=== PATIENT | male | born 1950 | race Caucasian/White ===

== ENCOUNTER 2017-10-07 10:12 | Day surgery (SDC) | payer MEDICARE, OTHER ==
[~2017-10-07] VITALS: Ht 180.3 cm; Wt 85.0 kg
[2017-10-07] VITALS (11 sets, daily range): BP systolic 114–151; BP diastolic 77–93; PULSE 52–60; TEMP 98.1
[2017-10-07] MEDS ORDERED: ZOCOR 40MG40 MG PO (11:01)
[2017-10-07] MEDS ORDERED: TOPROL XL 50MG50 MG PO (11:01)
[2017-10-07] MEDS ORDERED: ASPIRIN E.C. 8181 MG PO (11:02)
[2017-10-07] MEDS ORDERED: MASON NATURAL1200 MG PO (11:06)
[2017-10-07] MEDS ORDERED: GLUCOSAMINE & C1 CA2 PO (11:06)
[2017-10-07] MEDS ORDERED: FLONASEALLERGY NS (11:07)
[2017-10-07] MEDS ORDERED: ALLEGRA 180MG180 MG PO (11:07)
[2017-10-07] MEDS ORDERED: PHARMASSURE MA500 MG PO (11:07)
[2017-10-07] MEDS ORDERED: SUDAFED30 MG PO (11:10)
[2017-10-07 11:22] LABS: HEMATOCRIT 43.6 % (42.0-52.0); MEAN CELL VOLUME 96 fl (80.0-100.0); MEAN CORPUSCULAR HEMOGLOBIN 33 pg (27.0-31.0); MEAN CORPUSCULAR HGB CONC 34 g/dl (33.0-37.0); MEAN PLATELET VOLUME 9.2 fl (7.4-10.4); PLATELET COUNT 208 K/mm3 (130-400); RED BLOOD COUNT 4.56 M/mm3 (4.20-5.60); REDCELL DISTRIBUTION WIDTH-CV 12.9 % (11.5-14.5)
[2017-10-07 11:26] LABS: INR 1.2 (0.8-3.0); PROTHROMBIN TIME 13.6 SECONDS (9.7-12.8)
[2017-10-07 11:27] LABS: CALCIUM 9.3 mg/dL (8.4-10.2); CREATININE, serum 0.91 mg/dL (0.66-1.25); POTASSIUM 4.4 mmol/L (3.4-5.0)
[2017-10-07] MEDS ORDERED: IMDUR 60MG60 MG/TAB PO (13:50)
== END 2017-10-07 18:18 | disposition home or self-care (01) ==
LOC: COL.CAR 10:12
PROVIDERS: Internal Medicine Cardiovascular Disease
DX: I25.82 Chronic total occlusion of coronary artery (principal); T82.855A Stenosis of coronary artery stent, initial encounter; I25.10 Atherosclerotic heart disease of native coronary artery without angina pectoris; I10 Essential (primary) hypertension; E78.5 Hyperlipidemia, unspecified; Z86.718 Personal history of other venous thrombosis and embolism; Z79.82 Long term (current) use of aspirin; Z87.891 Personal history of nicotine dependence; Z68.26 Body mass index [BMI] 26.0-26.9, adult; Z95.5 Presence of coronary angioplasty implant and graft
CPT/HCPCS: J2250; J3010; Q9967

== ENCOUNTER 2019-01-05 06:56 | Day surgery (SDC) | payer MEDICARE, OTHER ==
[~2019-01-05] VITALS: Ht 180.3 cm; Wt 83.1 kg
[2019-01-05] VITALS (428 sets, daily range): BP systolic 103–138; BP diastolic 64–95; PULSE 47–82; TEMP 97.6–98.6; O2SAT 85–99
[~2019-01-05 06:56] MED LIST: ALLEGRA 180MG180 MG PO; ASPIRIN E.C. 8181 MG PO; FLONASEALLERGY NS; GLUCOSAMINE & C1 CA2 PO; IMDUR 60MG60 MG/TAB PO; LIPITOR 80MG80 MG PO; LOPRESSOR 550 MG/TAB PO; MASON NATURAL1200 MG PO; PHARMASSURE MA500 MG PO; SUDAFED30 MG PO
[2019-01-05 07:57] LABS: HEMOGLOBIN 14.7 g/dl (13.5-18.0); MEAN CELL VOLUME 96 fl (80.0-100.0); MEAN CORPUSCULAR HEMOGLOBIN 33 pg (27.0-31.0); MEAN CORPUSCULAR HGB CONC 34 g/dl (33.0-37.0); MEAN PLATELET VOLUME 9.1 fl (7.4-10.4); PLATELET COUNT 182 K/mm3 (130-400); RED BLOOD COUNT 4.47 M/mm3 (4.20-5.60); REDCELL DISTRIBUTION WIDTH-CV 13.2 % (11.5-14.5)
[2019-01-05 08:01] LABS: INR 1.1 (0.8-3.0); PROTHROMBIN TIME 12.5 SECONDS (9.7-12.8)
[2019-01-05 08:07] LABS: CALCIUM 9.1 mg/dL (8.4-10.2); CREATININE, serum 0.88 (0.66-1.25); POTASSIUM 4.4 mmol/L (3.4-5.0)
[2019-01-05] MEDS ORDERED: PLAVIX 75MG TAB75 MG PO (08:10)
[2019-01-05] MEDS ORDERED: IMDUR 30MG30 MG/TAB PO (08:19)
[2019-01-05] MEDS ORDERED: NITROSTAT0.4 MG/TAB SL (08:23)
[2019-01-05] MEDS ORDERED: NEURONTIN100 MG/CAP PO (08:23)
[2019-01-05] MEDS ORDERED: LUTEIN20 M1 PO (08:28)
--- NOTE | 2019-01-05 08:51 | NUR ---
pt to procedure,report to Deyvi Beal.
--- NOTE | 2019-01-05 09:05 | NUR ---
SEE MERGE DOCUMENTATION FOR MEDICATION ADMINISTRATION TIMES AND INTRA/POST PROCEDURE SEDATION ASSESSMENTS.
--- NOTE | 2019-01-05 10:05 | NUR ---
PT TRANSFERED TO ICU AT THIS TIME. BEDSIDE HANDOFF TAKING PLACE BETWEEN THIS RN AND ESCROW MANAGER. RIGHT FEMORAL PUNCTURE SITE EXAMINED. SITE SOFT WITH NO BLEEDING/OOZING NOTED. SAFEGUARD DEVICE INTACT WITH 40CC AIR IN BALLOON. DISTAL PULSES PALPABLE +2. NO OTHER VASCULAR VARIANCES NOTED AT THIS TIME.
--- NOTE | 2019-01-05 10:23 | NUR ---
Report received from Deyvi Fraire pt to transfer to ICU after procedure.
--- NOTE | 2019-01-05 10:32 | NUR ---
Report received from Juno CONLEY in laboratory engineer. Pt brought by bed to room 8 and placed on monitor. Assessment complete and meds reviewed. Angioseal and safe guard in place to right groin. Pt education on importance of flat time, keeping head down and leg straight. No concerns at this time, will continue to follow.
[2019-01-05 10:52] LABS: CHOLESTEROL RISK RATIO 3.5
--- NOTE | 2019-01-05 15:34 | NUR ---
Report given to Nel CONLYE and care transfered.
--- NOTE | 2019-01-05 20:21 | NUR ---
PT AMBULATED COUPLE OF LAPS AROUND UNIT. TOLERATED WELL.
[2019-01-06] VITALS (99 sets, daily range): BP systolic 110–121; BP diastolic 85–87; PULSE 50–68; TEMP 97.7–98; O2SAT 90–98
[2019-01-06 02:33] LABS: BASO % 0.5 % (0.0-2.0); EOS # 0.4 (0.0-0.7); EOS % 5.5 % (0-4.0); GRAN # 3.7 (1.4-6.5); GRAN % 49.4 % (42.2-75.2); HEMATOCRIT 42.5 % (42.0-52.0); HEMOGLOBIN 14.8 g/dl (13.5-18.0); LYMPH # 2.6 (1.2-3.4); LYMPH % 34.6 % (20.0-51.0); MEAN CELL VOLUME 95 fl (80.0-100.0); MEAN CORPUSCULAR HEMOGLOBIN 33 pg (27.0-31.0); MEAN CORPUSCULAR HGB CONC 35 g/dl (33.0-37.0); MEAN PLATELET VOLUME 9.3 fl (7.4-10.4); MONO # 0.7 (0.1-0.6); MONO % 9.7 % (1.7-9.3); PLATELET COUNT 162 K/mm3 (130-400); RED BLOOD COUNT 4.48 M/mm3 (4.20-5.60); REDCELL DISTRIBUTION WIDTH-CV 13.1 % (11.5-14.5)
[2019-01-06 02:42] LABS: CALCIUM 8.9 mg/dL (8.4-10.2); CREATININE, serum 0.83 (0.66-1.25); POTASSIUM 4.1 mmol/L (3.4-5.0)
--- NOTE | 2019-01-06 07:30 | NUR ---
Assessment complete, patient safeguard and dressing removed, band-aid applied, site remains soft without hematoma. Patient ambulating in room. Patient denies needs at this time, call light within reach.
--- NOTE | 2019-01-06 09:30 | NUR ---
SW met with patient to discuss discharge planning. Patient lives independently at home and plans to return there later today. Patient's PCP is KARAN Medina and he obtains prescriptions from [facility]. Patient does not use any DME or home health services. Patient will discharge later today. No discharge needs.
--- NOTE | 2019-01-06 10:04 | NUR ---
PharmD in speaking with patient.
[2019-01-06] MEDS ORDERED: ISOSORBIDE MON120 MG PO ×2 (10:20→10:44)
[2019-01-06] MEDS ORDERED: RANEXA 500MG T500 MG PO ×2 (10:20→10:39)
--- NOTE | 2019-01-06 11:39 | NUR ---
Discharge instructions, INT removed, questions invited and answered.
--- NOTE | 2019-01-06 11:54 | NUR ---
Patient taken out to private vehicle.
== END 2019-01-06 11:55 | disposition home or self-care (01) ==
LOC: COL.CAR 06:56 → ICU 10:18 → COL.CAR 01-06 11:55
PROVIDERS: Internal Medicine Cardiovascular Disease; Nurse Practitioner
DX: I25.10 Atherosclerotic heart disease of native coronary artery without angina pectoris (principal); I25.82 Chronic total occlusion of coronary artery; I25.110 Atherosclerotic heart disease of native coronary artery with unstable angina pectoris; Z95.5 Presence of coronary angioplasty implant and graft; I42.9 Cardiomyopathy, unspecified; I25.2 Old myocardial infarction; I10 Essential (primary) hypertension; E78.5 Hyperlipidemia, unspecified; Z86.718 Personal history of other venous thrombosis and embolism; Z79.899 Other long term (current) drug therapy; Z79.02 Long term (current) use of antithrombotics/antiplatelets; Z79.82 Long term (current) use of aspirin
CPT/HCPCS: OP; C9600; J0583; J1644; J2250; J3010; Q9967

== ENCOUNTER 2020-05-11 17:41 | Inpatient (IN) | payer MEDICARE, OTHER ==
[~2020-05-11] VITALS: Ht 180.3 cm; Wt 79.4 kg
[~2020-05-11 17:41] MED LIST changes: +IMDUR 30MG30 MG/TAB PO; +ISOSORBIDE MON120 MG PO; +LUTEIN20 M1 PO; +NEURONTIN100 MG/CAP PO; +NITROSTAT0.4 MG/TAB SL; +PLAVIX 75MG TAB75 MG PO; +RANEXA 500MG T500 MG PO
[2020-05-11 18:42] LABS: BASO # 0.1 (0.0-0.2); BASO % 0.6 % (0.0-2.0); EOS % 0.2 % (0-4.0); GRAN # 7.3 (1.4-6.5); GRAN % 81.6 % (42.2-75.2); HEMATOCRIT 39.9 % (42.0-52.0); HEMOGLOBIN 13.3 g/dl (13.5-18.0); LYMPH # 0.9 (1.2-3.4); LYMPH % 10.3 % (20.0-51.0); MEAN CELL VOLUME 99 fl (80.0-100.0); MEAN CORPUSCULAR HEMOGLOBIN 33 pg (27.0-31.0); MEAN CORPUSCULAR HGB CONC 33 g/dl (33.0-37.0); MEAN PLATELET VOLUME 9.9 fl (7.4-10.4); MONO # 0.6 (0.1-0.6); MONO % 6.4 % (1.7-9.3); PLATELET COUNT 207 K/mm3 (130-400); RED BLOOD COUNT 4.05 M/mm3 (4.20-5.60); REDCELL DISTRIBUTION WIDTH-CV 14.6 % (11.5-14.5)
[2020-05-11 18:58] LABS: ALBUMIN 4.2 gm/dL (3.5-5.0); BILIRUBIN,TOTAL 1.1 mg/dL (0.0-1.0); CALCIUM 8.9 mg/dL (8.4-10.2); CREATININE, serum 1.08 (0.66-1.25); POTASSIUM 4.3 mmol/L (3.4-5.0)
[2020-05-11 19:14] LABS: C-REACTIVE PROTEIN 23.3 mg/dL (0.0-0.9); TROPONIN-I 0.361 ng/mL (0.000-0.035)
[2020-05-11 19:33] LABS: COLLECTION METHOD CLEAN CATCH
[2020-05-11 19:43] LABS: MUCOUS Present /lpf; PH 5 (5-8); SQUAMOUS EPITHELIAL None Seen /hpf; URINE APPEARANCE Hazy; URINE BACTERIA None Seen /hpf; URINE BILIRUBIN Negative (NEGATIVE); URINE BLOOD Negative (NEGATIVE); URINE COLOR Amber; URINE GLUCOSE Negative (NEGATIVE); URINE KETONE Negative (NEGATIVE); URINE LEUKOCYTE ESTERASE Negative (NEGATIVE); URINE NITRATE Negative (NEGATIVE); URINE PROTEIN(semi-quant) 1+ (NEGATIVE)
[2020-05-11 20:05] LABS: INR 1.4 (0.8-3.0); PROTHROMBIN TIME 15.9 SECONDS (9.7-12.8)
[2020-05-11 20:07] LABS: PARTIAL THROMBOPLASTIN TIME 33.6 SECONDS (26.0-37.0)
--- NOTE | 2020-05-11 22:00 | NUR ---
Received patient from ED via stretcher. He is alert and oriented. With IV on righ AC infusing Heparin drip at 10ml/hr. Instructed patient that he is NPO by midnight. He is on room air. He denies abdominal pain but complains of headache. He is independent in the room. He did have a bowel movement when he came in.
[2020-05-11 22:23] VITALS: BP 119/71; PULSE 69; TEMP 99.1
--- NOTE | 2020-05-11 23:10 | NUR ---
Relayed to Noy FLATBED DRIVER regarding critical result of Troponin.
[2020-05-12] VITALS (380 sets, daily range): BP systolic 106–155; BP diastolic 59–92; PULSE 66–89; TEMP 98–102.1; O2SAT 62–100
--- NOTE | 2020-05-12 | NUR ---
Patient will have Zosyn to be infused for 4 hours and he has heparin drip as well. Informed patient that we need to insert another line as we cannot mix heparin and antibiotic in one line. He verbalizes understanding. 2nd line was inserted at left forearm using G22.
[2020-05-12 03:17] LABS: TRICYCLIC ANTIDEPRESS URINE NEGATIVE
[2020-05-12 03:38] LABS: BASO % 0.2 % (0.0-2.0); EOS % 0.5 % (0-4.0); GRAN # 6.4 (1.4-6.5); GRAN % 76.6 % (42.2-75.2); HEMATOCRIT 33.3 % (42.0-52.0); HEMOGLOBIN 11.4 g/dl (13.5-18.0); LYMPH % 12.4 % (20.0-51.0); MEAN CELL VOLUME 99 fl (80.0-100.0); MEAN CORPUSCULAR HEMOGLOBIN 34 pg (27.0-31.0); MEAN CORPUSCULAR HGB CONC 34 g/dl (33.0-37.0); MEAN PLATELET VOLUME 10.2 fl (7.4-10.4); MONO # 0.8 (0.1-0.6); MONO % 9.8 % (1.7-9.3); PLATELET COUNT 182 K/mm3 (130-400); RED BLOOD COUNT 3.35 M/mm3 (4.20-5.60); REDCELL DISTRIBUTION WIDTH-CV 14.6 % (11.5-14.5)
[2020-05-12 03:45] LABS: ALBUMIN 3.2 gm/dL (3.5-5.0); BILIRUBIN,TOTAL 0.8 mg/dL (0.0-1.0); CALCIUM 7.7 mg/dL (8.4-10.2); CREATININE, serum 0.97 (0.66-1.25); MAGNESIUM 2.2 mg/dL (1.6-2.3); PHOSPHOROUS 3.5 mg/dL (2.5-4.5); POTASSIUM 3.8 mmol/L (3.4-5.0); TOTAL PROTEIN 6.4 gm/dL (6.4-8.2)
[2020-05-12 03:58] LABS: TROPONIN-I 0.186 ng/mL (0.000-0.035)
--- NOTE | 2020-05-12 06:22 | NUR ---
Patient's temperature this morning is slightly elevated at 100.1F. He denies pain but complains of back ache due to the hospital bed not being comfortable. No change in the rate of heparin drip. Ativan never given for the alcohol detox protocol, he has been scoring 0-2.
--- NOTE | 2020-05-12 07:59 | NUR ---
THIS NURSE CALLED INTO THE PATIENT'S ROOM BY AGENT CONTRACT CLERK AND NOTIFIED THAT THE PATIENT IS VOMITING. UPON ENTRY TO THE ROOM THE PATIENT IS SITTING UP AT THE BEDSIDE WITH AGENT CONTRACT CLERK PRESENT CLEANING THE PATIENT UP. PATIENT GIVEN PRN IV ZOFRAN AT THIS TIME. PATIENT HAS FACIAL FLUSHING AND COMPLAINTS OF EXTREME CHILLS AND SHAKING. PATIENT GIVEN WARM BLANKET. PATIENT REPORTS THAT HE FEELS VERY WEAK TODAY. PATIENT IS A&0X4. LABORED, SHALLOW, TACHYPNIC BREATHING NOTED POST VOMITING. UPPER LUNG LOBES CLEAR UPON AUSCULTATION. LUNG BASES DIMINISHED BILATERALLY. PATIENT STATES THAT HE FEELS SOB AT THIS TIME. 02 SAT WITHIN NORMAL RANGE. BOWEL SOUNDS HYPOACTIVE ALL FOUR QUADRANTS. TELE IN PLACE. PATIENT MEDICATED PER DETOX PROTOCOL. WILL CONTINUE TO MONITOR.
--- NOTE | 2020-05-12 09:48 | NUR ---
PATIENT HEPXA RESULTED AT 0.30. NO CHANGE NEEDED PER LOW DOSE HEPARIN DRIP PROTOCOL. SECOND HEPXA RESULT WITHIN NORMAL RANGE. NEXT HEPXA RE-DRAW AT 0600 ON 05/13/2020. HEPARIN DRIP INFUSING TO RIGHT AC IV AT 10 ML/HR. CALL LIGHT WITHIN REACH. PRESENT AT THE BEDSIDE.
--- NOTE | 2020-05-12 10:13 | NUR ---
Director Of Direct Marketing met with patient and patient's , Rachael (ph#[phone]) to discuss discharge planning. Patient was sleeping so patient's , Rachael answered intake questions. Patient and Rachael live in [place] and patient sees KARAN Medina at [facility] for primary care. Patient obtains medications from [facility] with no difficulties. Patient does not use any DME and is normally independent with ADLS, although Rachael reports patient has needed assistance the last few days because he is not feeling well. Rachael is unsure if they have Advance Directives and will check into this. Patient plans to return home upon discharge and SW will continue to follow.
--- NOTE | 2020-05-12 13:02 | NUR ---
PATIENT GIVEN ATIVAN PER DETOX PROTOL. PATIENT 02 SPOT CHECKED AND IS AT 85% ON 2L VIA NASAL CANNULA. PATIENT BOOSTED AND REPOSITIONED IN BED. 02 INCREASED TO 4L VIA NASAL CANNULA. 02 CAME UP TO 94% WITH THE 4L. TEMP CURRENTLY 102.4 AFTER THE PATIENT TOOK TYLENOL. PATIENT IS SEDATED. SLOW TO FOLLOW VERBAL COMMANDS. PATIENT IS UNSURE OF WHERE HE IS. PRESENT AT THE BEDSIDE. CALLED AND UPDATED ON PATIENT STATUS.
--- NOTE | 2020-05-12 16:10 | NUR ---
PATIENT TRANSFERRED TO ICU ROOM 7 VIA BED. BEDSIDE REPORT GIVEN TO YAEL TERRELL.
--- NOTE | 2020-05-12 16:10 | NUR ---
Pt arrives to ICU room 7 via bed acc by engraving plate maker. Bedside report received. Pt's at bedside. Pt opens eyes to voice, but does not answer questions appropriately. Does not follow commands. No gross motor deficits. Serial VS initiated. Pt snores with periods of apnea up to 15 seconds. SPO2 70s with these episodes. Quickly returns to mid 90s as soon as additional breath is taken. Provider notified.
--- NOTE | 2020-05-12 19:40 | NUR ---
RECEIVED REPORT FROM YAEL TERRELL. AT BEDSIDE ASSISTING RT WITH ABG. PT APPEAR VERY SLEEPY BUT DOES OPEN EYES TO PAINFUL AND VERBAL STIMULI BRIEFLY. PT DOES SAY "HI" TO RN BUT FALLS BACK TO SLEEP EASILY. PT ON 4L VIA OXYMASK D\\T MOUTH BREATHING. VSS.
[2020-05-12 19:47] LABS: ARTERIAL BLD GAS O2 SATURATION 97.3 % (92-100); ARTERIAL BLD GAS TCO2 CT 17.4; ARTERIAL BLOOD GAS BASE EXCESS -5.8 (-2-2); ARTERIAL BLOOD GAS HCO3 16.6 meq/L (22-26); ARTERIAL BLOOD GAS PCO2 24.6 mmHg (35-45); ARTERIAL BLOOD GAS PO2 91.8 mmHg (80-100); ARTERIAL BLOOD GAS pH 7.45 (7.35-7.45)
--- NOTE | 2020-05-12 19:50 | NUR ---
PT ON 5 LPM OM WHEN HE IS SLEEPING HIS SATS DROP INTO THE LOW 70'S HE HAS SEVERE UNDIAGNOSED KALANI. PT WAS PLACED ON CPAP ANDREW WELL AND DOING MUCH BETTER. HOWEVER, PT IS REFUSING TO WEAR AND WILL TAKE THE MASK OFF TO THE CPAP. PT IS BACK ON 5 LPM OM ANDREW WELL AND RESTING COMFORTABLY WITH NO DISTRESS NOTED AT THIS TIME. WILL CONTINUE TO ASSESS AND MONITOR THORUGHOUT THE NIGHT
--- NOTE | 2020-05-12 20:10 | NUR ---
HEARD PT TALKING LOUDLY. UPON ENTERING ROOM PT HAD PULLED OFF CPAP AND WAS SAYING HE HAD TO "PEE." PT ASSISTED WITH URINAL BY RN. PT ABLE TO ANSWER ALL ORIENTATION QUESTIONS CORRECTLY AT THIS TIME BUT STILL APPEARS VERY DROWSY. PT ASSISTED BACK ONTO CPAP AND BEDALARM PLACED AT THIS TIME.
--- NOTE | 2020-05-12 22:15 | NUR ---
NURSING BEDSIDE SWALLOW PERFORMED. PT HAS NOT DIFFICULTIES. SEE MAR FOR MEDICATION ADMINISTRATION.
[2020-05-13] VITALS (1071 sets, daily range): BP systolic 105–143; BP diastolic 62–108; PULSE 56–138; TEMP 97.6–98.7; O2SAT 31–100
--- NOTE | 2020-05-13 00:36 | NUR ---
PT ABLE TO ANSWER ORIENTATION QUESTIONS APPROPRAITELY BUT FORGETS THAT HE IS IN ICU AND DOES NOT USE CALL LIGHT BEFORE TRYING TO GET OOB. BEDALARM REMAINS IN PLACE.
--- NOTE | 2020-05-13 01:13 | NUR ---
KARAN GREENWOOD NOTIFIED OF NO DVT ORDERS AT THIS TIME. AWAITING FOR ORDERS.
--- NOTE | 2020-05-13 02:30 | NUR ---
PT VERY AGITATED ADN CLIMBING OOB AND CONTINUING TO PUSH FORWARD AT RN WHEN MUTLIPLE ATTEMPTS ARE MADE TO EXPLAIN TO PT THAT THE ONLY TOILET IS UNDERNEATH SINK IN ROOM. PT REFUSING TO USE TOILET AND STATES "I DON'T CARE WHAT YOU SAY, I AM GOING FOR A WALK TO FIND A REAL RESTROOM." SECOND RN ENTERS ROOM THAT IS A MALE NURSE. PT WITH CLENCHED FISTS AT THIS TIME. PT ABLE TO CALM DOWN BY MALE RN AND SIT BACK DOWN IN BED. PT ALLOWS MALE RN TO ASSIST TO TOILET IN ROOM WITH BLINDS CLOSED AND THIS RN EXITING ROOM. PT CONTINUOSLY REPEATS HOW 'UNSANITARY' THIS TOILET IS. LINENS CHANGED. PT REORIENTED, SEE MAR FOR MEDICATION GIVEN. PT ASSISTED BACK TO BED WITH CALL LIGHT WITHIN REACH AND BEDALARM PLACED. PT REMAINS ON 4L VIA NC.
--- NOTE | 2020-05-13 03:30 | NUR ---
PER MT, PT'S HR INCREASED FROM 60s TO 120s. EKG ORDERED FOR VERIFICATION.
[2020-05-13 03:58] LABS: BASO % 0.2 % (0.0-2.0); EOS # 0.1 (0.0-0.7); EOS % 1.1 % (0-4.0); GRAN # 6.7 (1.4-6.5); GRAN % 76.2 % (42.2-75.2); HEMATOCRIT 37.2 % (42.0-52.0); HEMOGLOBIN 12.5 g/dl (13.5-18.0); LYMPH # 1.1 (1.2-3.4); LYMPH % 12.9 % (20.0-51.0); MEAN CELL VOLUME 100 fl (80.0-100.0); MEAN CORPUSCULAR HEMOGLOBIN 34 pg (27.0-31.0); MEAN CORPUSCULAR HGB CONC 34 g/dl (33.0-37.0); MONO # 0.8 (0.1-0.6); MONO % 8.9 % (1.7-9.3); PLATELET COUNT 208 K/mm3 (130-400); RED BLOOD COUNT 3.72 M/mm3 (4.20-5.60); REDCELL DISTRIBUTION WIDTH-CV 15.4 % (11.5-14.5)
[2020-05-13 04:08] LABS: ALBUMIN 3.4 gm/dL (3.5-5.0); BILIRUBIN,TOTAL 3.2 mg/dL (0.0-1.0); CALCIUM 7.9 mg/dL (8.4-10.2); CREATININE, serum 0.85 (0.66-1.25); POTASSIUM 3.5 mmol/L (3.4-5.0); TOTAL PROTEIN 6.9 gm/dL (6.4-8.2)
--- NOTE | 2020-05-13 04:08 | NUR ---
DR MOORE WITH NICOLE NOTIFIED OF PT SUDDEN AFIB RVR WITH RATE 120-140s. PT SLEEPING AND NO S/S OF ACUTE DISTRESS, BP STABLE. NOTIFIED PHYSICIAN LABS ARE ALREADY PENDING FOR THIS AM. PHYSICIAN STATES TO JUST MONITOR PT AT THIS TIME SINCE IT DOES NOT SEEM TO BE EFFECTING HIM.
[2020-05-13 04:25] LABS: MAGNESIUM 2.6 mg/dL (1.6-2.3)
--- NOTE | 2020-05-13 04:33 | NUR ---
DR MOORE NOTIFIED OF LABS, K 3.5, AST AND ALT IN 300s. NEW ORDERS RECEIVED.
--- NOTE | 2020-05-13 06:00 | NUR ---
PT AGITATED AND CUSSING AT RN AND KEEPS REPEATING THAT PT WANTS TO GO HOME. MULTIPLE ATTEMPTS MADE TO HELP CALM PT. PT ASSISTED TO TOILET IN ROOM BUT CONTINUES TO CUSS ABOUT HOW IT IS NOT A REAL TOILET. PT ASSISTED BACK TO BED, BUT IS RELUCTANT. CALL LIGHT WITHIN REACH. SEE MAR. BEDALARM PLACED.
--- NOTE | 2020-05-13 08:57 | NUR ---
ANGLE, NURSE WITH CARDIOLOGY OF PT'S CHANGE OF AFIB RVR LAST NIGHT. NURSE STATES CARDIOLOGY TEAM WILL BE BY THIS MORNING TO ACCESS PT. DR MUELLER AT BEDSIDE FOR ASSESSMENT AND DISCUSSING POC WITH AND PT AT BEDSIDE.
--- NOTE | 2020-05-13 12:17 | NUR ---
Timeout performed at 1124- PT shocked one time and in NSR at 1125. PT is currently resting in bed at bedside. PTs takes short naps and will answer questions and respond as he did prior to procedure. PT has call light in reach with bed alarm on. Will continue to monitor.
--- NOTE | 2020-05-13 12:32 | NUR ---
729 HEARD A "CRASH" AND PT YELL OUT 729- ENTERED ROOM TO FIND PATIENT ON FLOOR. C-collar put in place and patient moved on backboard to bed. 075- Dr. Jean notified of fall. 804- PT taken to CT via stretcher and 2 RNs 828- CT results read as no new abnormalities and patient denied any head or neck pain. C-collar removed along with board. PT is currenlty resting in bed with bed alarm on and call light in reach. Will continue to monitor.
--- NOTE | 2020-05-13 16:11 | NUR ---
Pet Groomer collaborted with the patient's nurse to order PT/OT for the patient.
--- NOTE | 2020-05-13 19:15 | NUR ---
RECEIVED REPORT FROM YAEL GALLO. PT BACK TO BED WITH X2 ASSIST. AT BEDSIDE. DISCUSSED POSSIBLE PROCEDURE TOMORROW WITH , VERBALIZED UNDERSTANDING. VSS. CALL LIGHT WITHIN REACH. BEDALARM PLACED. PT ON 4L VIA NC.
--- NOTE | 2020-05-13 22:00 | NUR ---
PT REFUSES TO WEAR CPAP WHILE SLEEPING. HE STATES "I AM NOT GOING TO DO THAT."
[2020-05-14] VITALS (368 sets, daily range): BP systolic 113–153; BP diastolic 62–96; PULSE 48–66; TEMP 98–98.7; O2SAT 56–100
[2020-05-14 05:50] LABS: INR 1.3 (0.8-3.0)
[2020-05-14 05:51] LABS: MEAN CELL VOLUME 102 fl (80.0-100.0); MEAN CORPUSCULAR HGB CONC 33 g/dl (33.0-37.0); MEAN PLATELET VOLUME 10.4 fl (7.4-10.4); PLATELET COUNT 224 K/mm3 (130-400); RED BLOOD COUNT 3.04 M/mm3 (4.20-5.60); REDCELL DISTRIBUTION WIDTH-CV 15.5 % (11.5-14.5)
[2020-05-14 05:56] LABS: ALBUMIN 2.8 gm/dL (3.5-5.0); CALCIUM 7.6 mg/dL (8.4-10.2); CREATININE, serum 0.84 (0.66-1.25); POTASSIUM 3.6 mmol/L (3.4-5.0); TOTAL PROTEIN 5.9 gm/dL (6.4-8.2)
[2020-05-14 05:58] LABS: MEAN CORPUSCULAR HEMOGLOBIN 34 pg (27.0-31.0)
[2020-05-14 06:00] LABS: HEMOGLOBIN 10.3 g/dl (13.5-18.0)
[2020-05-14 06:42] LABS: BAND 4 % (0-10); EOSINOPHIL 3 % (0-4); LYMPHOCYTE 21 % (20.0-51.0); NEUTROPHILS 61 % (42.0-75.2); PLATELET ESTIMATE NORMAL (NORMAL)
[2020-05-14 06:43] LABS: ANISOCYTOSIS 1+
--- NOTE | 2020-05-14 21:15 | NUR ---
HR 48, BP 116/76, ESMOLOL GTT CURRENTLY ON HOLD.
--- NOTE | 2020-05-14 21:42 | NUR ---
PT HAS REFUSED CPAP MULTIPLE NIGHTS, REMOVING HOSPITAL CPAP FROM PT ROOM.
[2020-05-15] VITALS (320 sets, daily range): BP systolic 117–145; BP diastolic 73–90; PULSE 44–61; TEMP 97.4–99.7; O2SAT 30–100
--- NOTE | 2020-05-15 01:29 | NUR ---
0040: Pt HR in the low 50s, Esmolol gtt running at ordered dose. 0115: Pt having increasing ectopy, HR in the mid to upper 40s. AYLA Valdez notified via phone, will return phone call for new orders.
--- NOTE | 2020-05-15 01:49 | NUR ---
Orders received to titrate Esmolol dose down to 35mcg/kg/min.
[2020-05-15 05:36] LABS: BASO % 0.2 % (0.0-2.0); GRAN # 9.3 (1.4-6.5); GRAN % 82.5 % (42.2-75.2); HEMOGLOBIN 11.2 g/dl (13.5-18.0); LYMPH # 1.2 (1.2-3.4); MEAN CELL VOLUME 101 fl (80.0-100.0); MEAN CORPUSCULAR HEMOGLOBIN 33 pg (27.0-31.0); MEAN CORPUSCULAR HGB CONC 33 g/dl (33.0-37.0); MEAN PLATELET VOLUME 10.5 fl (7.4-10.4); MONO # 0.7 (0.1-0.6); MONO % 5.7 % (1.7-9.3); PLATELET COUNT 210 K/mm3 (130-400); RED BLOOD COUNT 3.36 M/mm3 (4.20-5.60); REDCELL DISTRIBUTION WIDTH-CV 15.5 % (11.5-14.5)
[2020-05-15 05:37] LABS: HEMATOCRIT 33.9 % (42.0-52.0)
[2020-05-15 05:50] LABS: ALBUMIN 3.1 gm/dL (3.5-5.0); BILIRUBIN,TOTAL 0.7 mg/dL (0.0-1.0); CREATININE, serum 0.73 (0.66-1.25); POTASSIUM 4.1 mmol/L (3.4-5.0); TOTAL PROTEIN 6.2 gm/dL (6.4-8.2)
--- NOTE | 2020-05-15 18:30 | NUR ---
Patient transferred to surgical floor via wheelchair. RN at bedside to help get him in bed.
--- NOTE | 2020-05-15 18:35 | NUR ---
Patient to room 322-2 by wheelchair from ICU. with the patient. Patient 2xassit with pivot to the bed. Patient bracing a pillow on abdomen to help with pain. Patient A&Ox3. IV CDI, fluids infusing. Lap sits abdomen x5. Open to air minimal drainage on 1xsite. Patient positioned for comfort. Call light within reach. Informed patient that switching shifts and will introduce new nurse coming on. No further needs expressed from the patient. Call light within reach
--- NOTE | 2020-05-15 20:58 | NUR ---
PT ABDOMEN DISTENDED AND TIGHT. HAS LOTS OF GAS IN STOMACH, NOT PASSING FLATUS. REPOSITIONED TO LEFT SIDE. MEDICATED WITH HS MEDS INCLUDING SL LEVSIN AND PO OXYCODONE. IVF INFUSING TO LEFT FOREARM.
--- NOTE | 2020-05-15 21:20 | NUR ---
IVF CAPPED. PT ENCOURAGED TO DRINK FLUIDS.
[2020-05-16] VITALS (7 sets, daily range): BP systolic 123–135; BP diastolic 68–79; PULSE 57–67; TEMP 98.2–100.6
--- NOTE | 2020-05-16 00:33 | NUR ---
PT REPORTS PAIN TO ABD 6/10, MEDICATED WITH OXYCODONE 5MG PO AND DILAUDID 0.25MG IVP. PT TURNING SELF SIDE TO SIDE. USES URINAL FOR 400CC OF YELLOW URINE.
--- NOTE | 2020-05-16 01:00 | NUR ---
PT REFUSES [facility]CD[facility], STATES "THEY MAKE ME TOO HOT".
--- NOTE | 2020-05-16 04:30 | NUR ---
PT HAS BEEN TURNING SIDE TO SIDE THIS SHIFT. OFFERS NO CONCERNS AT THIS TIME.
[2020-05-16 09:44] LABS: BASO % 0.1 % (0.0-2.0); EOS # 0.2 (0.0-0.7); EOS % 1.6 % (0-4.0); GRAN # 7.6 (1.4-6.5); GRAN % 75.7 % (42.2-75.2); HEMOGLOBIN 11.6 g/dl (13.5-18.0); LYMPH # 1.6 (1.2-3.4); LYMPH % 15.5 % (20.0-51.0); MEAN CELL VOLUME 99 fl (80.0-100.0); MEAN CORPUSCULAR HEMOGLOBIN 34 pg (27.0-31.0); MEAN CORPUSCULAR HGB CONC 35 g/dl (33.0-37.0); MEAN PLATELET VOLUME 10.7 fl (7.4-10.4); MONO # 0.6 (0.1-0.6); MONO % 6.4 % (1.7-9.3); PLATELET COUNT 267 K/mm3 (130-400); RED BLOOD COUNT 3.39 M/mm3 (4.20-5.60); REDCELL DISTRIBUTION WIDTH-CV 15.1 % (11.5-14.5)
[2020-05-16 09:56] LABS: ALBUMIN 3.1 gm/dL (3.5-5.0); CREATININE, serum 0.7 (0.66-1.25); POTASSIUM 3.5 mmol/L (3.4-5.0); TOTAL PROTEIN 6.3 gm/dL (6.4-8.2)
[2020-05-16 09:58] LABS: HEMATOCRIT 33.5 % (42.0-52.0)
--- NOTE | 2020-05-16 11:11 | NUR ---
First visit from the pelt shearer. No needs right now.
--- NOTE | 2020-05-16 11:50 | NUR ---
Patient got up into the shower. He was weak walking into the bathroom. We used a walker. He is passing flatus but did not have a bowel movement. He had some nausea this morning but was doing better after eating a little. He is drinking more fluids this morning. His is at bedside. Incisions to abdomen are well approximated. Have some pain to RUQ with ambulation. No other changes at this time. Call light within reach.
--- NOTE | 2020-05-16 14:06 | NUR ---
DESTINY met with the patient and his , Rachael, to follow up and review d/c plan. The patient states that he is ready to get home. DESTINY discussed home health services and their benefits. The patient states that he is not interested in home health, but would be interested in outpatient PT at [facility]. He states that he has received therapy there before and that they have a great program. SW to notify the clinical and schedule him outpatient therapy appointments at [facility].
--- NOTE | 2020-05-16 18:27 | NUR ---
Patients IV started leaking this afternoon. Katerina Mejia RN, reservations sales supervisor started a new IV to his left hand. Patient did some work with PT but needs a lot of encouragement to get out bed. Reminded him that he needs to be taking 4 walks a day. No more complaints of nausea since this am. He is is eating more. No bowel movements today but he continues to pass flatus, his abdomen is softer and not as distended. No other changes at this time. Call lobo trinidad.
--- NOTE | 2020-05-16 19:00 | NUR ---
Received report from YAEL Carlin. Pt currently resting in bed and has no concerns at this time. Pt has his call light within reach and was encourged to call if he needs to use the restroom. Pt is currently leaving for the night.
[2020-05-17] VITALS (8 sets, daily range): BP systolic 124–146; BP diastolic 59–79; PULSE 55–70; TEMP 98.1–99.6
--- NOTE | 2020-05-17 00:30 | NUR ---
Pt has rested well during the night. Pt did get pain medication once during the night. Pt had a temp of 99.2 pt was encourged to cough and deep breathe. Pt has ambulated to the restroom a couple times during the night.
[2020-05-17 07:22] LABS: BASO % 0.2 % (0.0-2.0); EOS # 0.2 (0.0-0.7); GRAN # 6.8 (1.4-6.5); GRAN % 73.8 % (42.2-75.2); HEMOGLOBIN 11.2 g/dl (13.5-18.0); LYMPH # 1.3 (1.2-3.4); LYMPH % 14.3 % (20.0-51.0); MEAN CELL VOLUME 99 fl (80.0-100.0); MEAN CORPUSCULAR HEMOGLOBIN 33 pg (27.0-31.0); MEAN CORPUSCULAR HGB CONC 34 g/dl (33.0-37.0); MEAN PLATELET VOLUME 10.5 fl (7.4-10.4); MONO # 0.8 (0.1-0.6); PLATELET COUNT 287 K/mm3 (130-400); RED BLOOD COUNT 3.35 M/mm3 (4.20-5.60); REDCELL DISTRIBUTION WIDTH-CV 14.9 % (11.5-14.5)
--- NOTE | 2020-05-17 07:22 | NUR ---
Lying in bed with eyes open. Rates pain 6/10, mostly in back. Having some nausea and would like medication for this, will administer Zofran as prescribed. Lap sites x5 to abd with all edges well approximated, no redness/swelling/discharge. Passing gas and voiding without difficulty. Denies additional needs at this time.
[2020-05-17 07:38] LABS: ALBUMIN 3.1 gm/dL (3.5-5.0); CALCIUM 8.2 mg/dL (8.4-10.2); CREATININE, serum 0.69 (0.66-1.25); POTASSIUM 3.7 mmol/L (3.4-5.0); TOTAL PROTEIN 6.4 gm/dL (6.4-8.2)
--- NOTE | 2020-05-17 09:03 | NUR ---
Rates pain 7/10 in abd and back, requests pain medication. Administer Roxicodone as prescribed. Patient lying in bed, hopes that the pain medication will help alleviate pain so that he can move around better. at bedside. Denies additional needs.
--- NOTE | 2020-05-17 10:23 | NUR ---
Patient up in halls ambulating with PT. Rates pain 5/10 in abd and back, more pain in back than anywhere else. Will get in shower at this time. in room with the patient. Denies additional needs at this time.
--- NOTE | 2020-05-17 11:52 | NUR ---
Lying in bed with eyes closed. Opens eyes when name called out. Rates pain in abd 2/10, says he feels pretty good at this time. Encouraged patient to cough and deep breathe, explain we will recheck his temp here in a little bit. Patient does not want to eat lunch tray as he is not hungry because he ate a lot at breakfast. in room with the patient. Denies any additional needs or concerns.
--- NOTE | 2020-05-17 13:32 | NUR ---
PT worked with the patient and are recommending outpatient PT. DESTINY contacted [facility] and secured the patient an outpatient PT appointment on Saturday, 05/24 at 0930. The patient's orders will need to be faxed to [phone]. DESTINY to notify the patient's RN of the appointment.
--- NOTE | 2020-05-17 13:34 | NUR ---
Patient says that he "has a kink in my neck" from sleeping incorrectly. Muscle tight to right neck area into shoulder. Will administer Tylenol as prescribed. Will try heating pad to area as well.
--- NOTE | 2020-05-17 15:51 | NUR ---
Patient ambulates to bathroom with use of walker. Gait slow and steady. Patient rates pain 4/10 in abd and back, says that he feels pretty good at this time. remains in room with the patient. Denies additional needs.
--- NOTE | 2020-05-17 17:14 | NUR ---
Patient sitting on edge of bed. Continues to have pain in right neck and shoulder area and would like pain medication as it will not relax for him to move. Will administer Roxicodone at this time. Patient eating dinner. in room with the patient. Denies additional needs.
--- NOTE | 2020-05-17 17:41 | NUR ---
Patient situated self in bed. Has heating pad to right shoulder neck area. Denies additional needs or concerns.
--- NOTE | 2020-05-17 21:00 | NUR ---
PT IN BED, IS ALERT AND ORIENTED X4, DROWSY. HAS HEATING PAD TO RT SHOUDLER. ABD ROBOTIC SITES DRY/GLUED X5. HAS SL TO LEFT HAND. TAKES HS MEDS WITHOUT PROBLEM. REPORTS PASSING GAS, NO BM.
--- NOTE | 2020-05-17 21:44 | NUR ---
REFUSES [facility]CDS THEY MAKE HIM "TOO HOT".
[2020-05-18 04:00] VITALS: BP 121/58; PULSE 67; TEMP 99.3
--- NOTE | 2020-05-18 04:43 | NUR ---
PT REPORTS NAUSEA, SALTINES GIVEN. TAKES TYLENOL 650MG FOR RT SHOULDER DISCOMFORT.
[2020-05-18 07:25] VITALS: BP 133/67; PULSE 71; TEMP 98.3
--- NOTE | 2020-05-18 07:31 | NUR ---
Lying in bed with eyes open. Denies pain at this time, says that he feels pretty good. [place] he slept well on his side. Right shoulder and neck pain decreased this morning. Abd lap sites x5 with all edges well approximated, no redness/swelling/discharge. Patient hopes to go home today. Denies additional needs at this time.
[2020-05-18 07:38] LABS: BASO % 0.3 % (0.0-2.0); EOS # 0.2 (0.0-0.7); EOS % 2.3 % (0-4.0); GRAN % 67.3 % (42.2-75.2); HEMOGLOBIN 12.2 g/dl (13.5-18.0); MEAN CELL VOLUME 100 fl (80.0-100.0); MEAN CORPUSCULAR HEMOGLOBIN 34 pg (27.0-31.0); MEAN CORPUSCULAR HGB CONC 34 g/dl (33.0-37.0); MEAN PLATELET VOLUME 9.5 fl (7.4-10.4); MONO # 1.1 (0.1-0.6); MONO % 10.1 % (1.7-9.3); PLATELET COUNT 367 K/mm3 (130-400); RED BLOOD COUNT 3.63 M/mm3 (4.20-5.60); REDCELL DISTRIBUTION WIDTH-CV 14.8 % (11.5-14.5)
[2020-05-18 07:40] LABS: HEMATOCRIT 36.3 % (42.0-52.0)
[2020-05-18] MEDS ORDERED: OMNICEF 300MG300 MG PO (10:56)
[2020-05-18] MEDS ORDERED: TOPROL XL 25MG25 MG PO (10:57)
[2020-05-18] MEDS ORDERED: PROBIOTIC ACID1 EAC3 PO (10:58)
[2020-05-18] MEDS ORDERED: DUO-KAPS1 CAP PO (10:58)
[2020-05-18] MEDS ORDERED: MIRALAX PA17 GM/Dose PO (10:59)
[2020-05-18] MEDS ORDERED: ROXICODONE 55 MG/TAB PO (11:00)
--- NOTE | 2020-05-18 11:24 | NUR ---
SW attended clinical rounds. The patient is ready to d/c today. DESTINY followed up with the patient and his and presented and read the IM form outloud. The patient verbalized understanding and gave SW approval to sign the form on his behalf. SW provided him with a copy. The patient is to discharge back home with his today, 05/18, and outpatient PT at [facility]. DESTINY faxed the patient's orders to [facility]. No additional needs at this time.
--- NOTE | 2020-05-18 11:30 | NUR ---
Review all discharge instructions with the patient and his . All questions answered. Patient and verbalize understanding to all instructions and patient signs discharge paperwork. Discharge packet provided to patient. Patient is going to shower at this time and will use call light when ready to be taken out to vehicle. All personal belongings have been gathered.
--- NOTE | 2020-05-18 12:19 | NUR ---
Patient ready to leave. Assisted out to POV via wheel chair by this nurse with all personal belongings.
--- NOTE | 2020-05-18 13:34 | NUR ---
SW update: Refaxed DC orders to include therapy notes to [facility] .
== END 2020-05-18 12:19 | disposition home or self-care (01) | DRG 853 ==
LOC: COL.ER 17:41 → SURG 20:10 → ICU 05-12 16:55 → SURG 05-15 19:26
PROVIDERS: Emergency Medicine; Hospitalist; Internal Medicine Sleep Medicine; Nurse Practitioner Family; Physician Assistant; Surgery; ADMIT Student in an Organized Health Care Education/Training Program
PROC: 5A2204Z Restoration of Cardiac Rhythm, Single (ICD-10-PCS; principal; 2020-05-13)
PROC: 0FT44ZZ Resection of Gallbladder, Percutaneous Endoscopic Approach (ICD-10-PCS; 2020-05-14)
PROC: 8E0W4CZ Robotic Assisted Procedure of Trunk Region, Percutaneous Endoscopic Approach (ICD-10-PCS; 2020-05-14)
DX: A41.51 Sepsis due to Escherichia coli [E. coli] (principal); J96.01 Acute respiratory failure with hypoxia; G93.41 Metabolic encephalopathy; I21.A1 Myocardial infarction type 2; G93.40 Encephalopathy, unspecified; K80.00 Calculus of gallbladder with acute cholecystitis without obstruction; I50.30 Unspecified diastolic (congestive) heart failure; I11.0 Hypertensive heart disease with heart failure; E78.5 Hyperlipidemia, unspecified; I25.10 Atherosclerotic heart disease of native coronary artery without angina pectoris; F32.9 Major depressive disorder, single episode, unspecified; D64.9 Anemia, unspecified; I48.91 Unspecified atrial fibrillation; F10.10 Alcohol abuse, uncomplicated; Z86.718 Personal history of other venous thrombosis and embolism; Z87.891 Personal history of nicotine dependence; Z88.0 Allergy status to penicillin
CPT/HCPCS: 99223-AI; 99232-AI; 99233-AI; 99239; A9284; J0330; J0690; J0696; J1100; J1170; J1644; J2060; J2405; J2543; J2704; J3010; J3411; J7030; J7120; Q9967